=== PATIENT | male | born 1950 | race Caucasian/White ===

== ENCOUNTER 2017-06-03 10:04 | Outpatient (CLI) | payer OTHER, MEDICARE ==
[~2017-06-03] VITALS: Ht 180.3 cm; Wt 106.1 kg
[~2017-06-03 10:04] MED LIST: ASP325T PO; CALC600T PO; DOXY-233 PO; GLUC1TAB29 PO; GLUC500C2 PO; LVT.025T PO; MULT-974 PO; NF-VAL40T PO; NIAC1CAP PO; OMG1KC PO; PRV20T GT; SIRO1TAB PO; TACR1CAP PO; UBID200C17 PO; VIT1TABL57 PO
[2017-06-03 10:11] VITALS: BP 141/81
[2017-06-03 11:04] LABS: BASOPHILS # (AUTO) 0.1 10^3/uL (0.0-0.1); BASOPHILS % (AUTO) 1 % (0-10); EOSINOPHILS # (AUTO) 0.3 10^3/uL (0.0-0.3); EOSINOPHILS % (AUTO) 3 % (0-10); LYMPHOCYTES # (AUTO) 1.8 X 10^3 (1.0-4.0); LYMPHOCYTES % (AUTO) 20 % (12-44); MEAN CORPUSCULAR HEMOGLOBIN 28 PG (25-34); MEAN CORPUSCULAR HGB CONC 33 G/DL (32-36); MEAN CORPUSCULAR VOLUME 85 FL (80-99); MEAN PLATELET VOLUME 10.4 FL (7.4-10.4); MONOCYTES # (AUTO) 1.2 X 10^3 (0.0-1.0); MONOCYTES % (AUTO) 13 % (0-12); NEUTROPHILS # (AUTO) 5.7 X 10^3 (1.8-7.8); NEUTROPHILS % (AUTO) 64 % (42-75); PLATELET COUNT 233 10^3/uL (130-400); RED BLOOD COUNT 5.61 10^6/uL (4.35-5.85); RED CELL DISTRIBUTION WIDTH 14.5 % (10.0-14.5)
[2017-06-03 11:12] LABS: CALCIUM 9.4 MG/DL (8.5-10.1); CREATININE SERUM 1.22 MG/DL (0.60-1.30); POTASSIUM 4.3 MMOL/L (3.6-5.0)
[2017-06-03] MEDS ORDERED: OMG1KC PO (14:07)
[2017-06-03] MEDS ORDERED: ASPI-983 PO (14:07)
[2017-06-03] MEDS ORDERED: UBID200C16 PO (14:07)
[2017-06-03] MEDS ORDERED: CALC600T80 PO (14:07)
[2017-06-03] MEDS ORDERED: CHERRY EXTRACT PO (14:07)
[2017-06-03] MEDS ORDERED: ASCO10006 PO (14:07)
[2017-06-03] MEDS ORDERED: GLUC1500 PO (14:07)
[2017-06-03] MEDS ORDERED: MULT-35 PO (14:07)
[2017-06-03] MEDS ORDERED: VALS40TA8 PO (14:28)
[2017-06-03] MEDS ORDERED: LEVO25TA5 PO (14:28)
[2017-06-03] MEDS ORDERED: SIRO0.5T PO (14:28)
[2017-06-03] MEDS ORDERED: FENO54TA PO (14:28)
[2017-06-03] MEDS ORDERED: TACR0.5C PO ×2 (14:28)
[2017-06-03] MEDS ORDERED: PRAV20TA3 PO (14:28)
[2017-06-03] MEDS ORDERED: CHOL20003 PO (15:12)
[2017-06-03] MEDS ORDERED: ASCO-262 PO (15:17)
== END 2017-06-03 10:45 | disposition home or self-care (01) ==
LOC: PREOP 10:04
PROVIDERS: ATTEND Surgery
DX: K40.90 Unilateral inguinal hernia, without obstruction or gangrene, not specified as recurrent; Z01.812 Encounter for preprocedural laboratory examination
CPT/HCPCS: 36415; 80048; 85025; 87081

== ENCOUNTER → 2017-12-03 | Outpatient (CLI) | payer OTHER, MEDICARE ==
[~2017-12-03] MED LIST changes: +ASCO-262 PO; +ASCO10006 PO; +ASPI-983 PO; +CALC600T80 PO; +CHERRY EXTRACT PO; +CHOL20003 PO; +FENO54TA PO; +GLUC15006 PO; +LEVO25TA5 PO; +MULT-35 PO; +PRAV20TA3 PO; +SIRO0.5T PO; +TACR0.5C PO; +UBID200C16 PO; +VALS40TA8 PO
--- NOTE | 2017-12-03 12:15 | Diagnostic Imaging Report ---
INDICATION: Pneumonia. TIME OF EXAM: 12:09 PM No prior studies are available for comparison. FINDINGS: The heart size is normal. There are changes of median sternotomy. The lungs are clear. No infiltrate, effusion or pneumothorax is detected. IMPRESSION: No acute cardiopulmonary process is detected. Dictated by: Dictated on workstation # [id number]
== END ==
LOC: RAD 11:32
PROVIDERS: ATTEND Internal Medicine
DX: J18.9 Pneumonia, unspecified organism (principal)
CPT/HCPCS: 71046

== ENCOUNTER → 2018-11-30 | Outpatient (CLI) | payer OTHER, MEDICARE ==
[~2018-11-30] MED LIST changes: -VALS40TA8 PO; +VALS40TA9 PO
--- NOTE | 2018-11-30 15:42 | Diagnostic Imaging Report ---
PROCEDURE: CT sinuses without contrast TECHNIQUE: Multiple contiguous axial images were obtained through the sinuses without the use of intravenous contrast. Coronal and sagittal reformations were then performed. Auto Exposure Controls were utilized during the CT exam to meet ALARA standards for radiation dose reduction. INDICATION: Sinusitis and right-sided facial pain. FINDINGS: Frontal sinuses are clear. There is minimal mucosal thickening of the ethmoid air cells. Sphenoid sinus is unremarkable. Bilateral maxillary sinuses are clear. No mucosal thickening or air-fluid levels are seen. Ostiomeatal units are patent. Mastoids are well aerated. IMPRESSION: No evidence of sinusitis. Dictated by: Dictated on workstation # [id number]
== END ==
LOC: RAD 15:09
PROVIDERS: ATTEND Internal Medicine
DX: J01.01 Acute recurrent maxillary sinusitis (principal)
CPT/HCPCS: 70486

== ENCOUNTER → 2019-11-27 | Outpatient (CLI) | payer OTHER, MEDICARE ==
--- NOTE | 2019-11-27 16:49 | Diagnostic Imaging Report ---
EXAMINATION: CHEST (PA AND LATERAL) CLINICAL INDICATION: 69-year-old male, cough and shortness of breath. COMPARISON: December 03, 2017. FINDINGS: There are median sternotomy wires. Stable overall appearance of the cardiomediastinal silhouette. There is no identified pneumothorax. There is no pleural effusion. There is no identified focal airspace consolidation. There are degenerative changes of the spine. There are right acromioclavicular degenerative changes. IMPRESSION: 1. No identified acute cardiopulmonary abnormality. Dictated by: Dictated on workstation # [id number]
== END ==
LOC: RAD 16:33
PROVIDERS: ATTEND Internal Medicine
DX: J18.1 Lobar pneumonia, unspecified organism (principal)
CPT/HCPCS: 71046

== ENCOUNTER → 2020-01-16 | Outpatient (CLI) | payer OTHER, MEDICARE ==
--- NOTE | 2020-01-16 10:20 | Diagnostic Imaging Report ---
INDICATION: Cough. Abnormal breath sounds. Comparison with 11/27/2019. FINDINGS: PA and lateral chest. The lungs are well-aerated. No infiltrates are present. There is mild cardiomegaly. Median sternotomy changes are present. There is implanted monitor overlying the sternum. No evidence of pulmonary edema. No pneumothorax or pleural effusion. IMPRESSION: Postoperative residue. No acute changes have occurred when compared with previous examination. Dictated by: Dictated on workstation # [id number]
== END ==
LOC: RAD 09:36
PROVIDERS: ATTEND Internal Medicine
DX: R05 Cough (principal); R06.89 Other abnormalities of breathing; Z98.890 Other specified postprocedural states
CPT/HCPCS: 71046

== ENCOUNTER 2020-05-09 21:42 | Emergency (ER) | payer OTHER, MEDICARE ==
[~2020-05-09] VITALS: Ht 180 cm; Wt 105.3 kg
--- NOTE | 2020-05-09 22:08 | ED General ---
General Stated Complaint: SWOLEN HANDS Source of Information: Patient (LIMITED HISTORIAN) History of Present Illness Date Seen by Provider: May 09, 2020 Time Seen by Provider: 21:54 Initial Comments PT ARRIVES VIA POV FROM HOME C/O REDNESS AND SWELLING TO LEFT > RIGHT HAND SINCE YESTERDAY C/O FEVER UP TO 99 TOOK 1 GRAM OF TYLENOL AT 1930 TONIGHT HAS HAD GENERALIZED ITCHY RASH FOR THE LAST "2-3 WEEKS", AND HANDS HAVE BEEN DRY AND CRACKED FOR THE LAST 2-3 WEEKS--HAS NOT SOUGHT CARE AT ANY TIME FOR THAT PROBLEM AND HAS NOT TAKEN ANYTHING FOR IT OR USED ANY CREAMS, ETC ON IT NO NEW PRODUCTS., MEDICATIONS OR EXPOSURES MUCH LATER, PT REPORTS THAT "2-3 WEEKS AGO"---AT THE SAME TIME THAT HE BEGAN HAVING THIS GENERALIZED ITCHY RASH, THAT HE HAD HIS 2 ANTI-REJECTION MEDICATION DOSES CHANGED. HE STATES HE WAS TAKING RAPAMUME 1 TABLET ALTERNATING WITH 0.5 TABLET EVERY OTHER DAY--THIS WAS INCREASED TO 1 FULL PILL DAILY. HE WAS TAKING PROGRAF 1 TABLET IN AM, 0.5 TABLET IN PM--THIS WAS DECREASED TO 0.5 TABLET TWICE A DAY NO HISTORY OF SIMILAR OR ANY SKIN PROBLEMS IN THE PAST NO DIFFICULTY BREATHING OR SWALLOWING. PT HAS HAD HEART TRANSPLANT IN [address] HI'S OFFICE LATE THIS AFTERNOON AND HAS AN APPOINTMENT IN THE MORNING FOR THIS PROBLEM PCP: DR. HI CARDIOLOGY: [facility] Allergies and Home Medications Allergies Coded Allergies: Penicillins (Unverified Allergy, Mild, 01/09/10) Home Medications Ascorbate Calcium 500 Mg Tablet, 500 MG PO HS, (Reported) Ascorbic Acid 1,000 Mg Tablet, 1,000 MG PO DAILY, (Reported) Aspirin 81 Mg Tablet.dr, 81 MG PO HS, (Reported) Calcium Carbonate 600 Mg Tablet, 600 MG PO BID, (Reported) Cholecalciferol (Vitamin D3) 2,000 Unit Capsule, 2,000 UNIT PO DAILY, (Reported) Clindamycin HCl 300 Mg Capsule, 300 MG PO QID Prescribed by: DHEERAJ ALMANZAR on 05/09/20 1295 Fenofibrate 54 Mg Tablet, 54 MG PO DAILY, (Reported) Glucosamine HCl 1,500 Mg Tablet, 1,500 MG PO BID, (Reported) L. Acidophilus/Pectin, [place] 1 Each Capsule, 2 EACH PO QID Prescribed by: DHEERAJ ALMANZAR on 05/09/20 7645 Levothyroxine Sodium 25 Mcg Tablet, 25 MCG PO DAILY, (Reported) Multivitamin 1 Each Tablet, 1 TAB PO DAILY, (Reported) [place] 3 Polyunsat Fatty Acids 1,000 Mg Cap, 2,000 MG PO BID, (Reported) Pravastatin Sodium 20 Mg Tablet, 20 MG PO HS, (Reported) Sirolimus 0.5 Mg Tablet, 0.5 MG PO Q48H, (Reported) ALTERNATES EVERY OTHER DAY WITH 1MG Sirolimus 0.5 Mg Tablet, 1 MG PO Q48H, (Reported) TAKES 2 (0.5MG) TABLETS ALTERNATES EVERY OTHER DAY WITH 0.5MG Tacrolimus 0.5 Mg Capsule, 1 MG PO DAILY, (Reported) TAKES 2 (0.5MG) CAPSULES EVERY MORNING AND 1 (0.5MG) CAPSULE EVERY EVENING Tacrolimus 0.5 Mg Capsule, 0.5 MG PO HS, (Reported) TAKES 2 (0.5MG) CAPSULES EVERY MORNING AND 1 (0.5MG) CAPSULE EVERY EVENING Ubidecarenone 200 Mg Capsule, 200 MG PO DAILY, (Reported) Valsartan 40 Mg Tablet, 40 MG PO HS, (Reported) [Wren Extract] , 1,200 MG PO HS, (Reported) Patient Home Medication List Home Medication List Reviewed: Yes Review of Systems Review of Systems Constitutional: see HPI, fever EENTM: no symptoms reported, other (NO SWELLING TO LIPS OR TONGUE OR THROAT) Respiratory: no symptoms reported; No cough, No short of breath, No wheezing Cardiovascular: no symptoms reported; No chest pain Gastrointestinal: no symptoms reported Musculoskeletal: see HPI Skin: see HPI Psychiatric/Neurological: No Symptoms Reported Hematologic/Lymphatic: No Symptoms Reported Immunological/Allergic: see HPI, transplant Past Hhptxfx-Caftau-Guvzvi Hx Past Med/Social Hx: Reviewed and Corrections made Patient Social History Recent Hopitalizations: No Immunizations Up To Date Date of Influenza Vaccine: Jul 18, 2013 Seasonal Allergies Seasonal Allergies: Yes Past Medical History Surgeries: Yes (HEART TRANSPLANT 07/2005; COLONOSCOPY 2012) Cardiac Respiratory: Yes Sleep Apnea Currently Using CPAP: Yes Cardiac: Yes (HEART TRANSPLANT 07/2005 FOR IHSS) Hypertension Neurological: Yes Vertigo Genitourinary: No Gastrointestinal: Yes (DIVERTICULAR DISEASE NOTED ON COLONOSCOPY) Diverticulosis Musculoskeletal: Yes Gout Endocrine: No HEENT: No Cancer: Yes Skin Psychosocial: No Integumentary: No Blood Disorders: No Physical Exam Vital Signs Vital Signs - First Documented 05/09/20 21:55 Temp 37.3 Pulse 79 Resp 19 B/P (MAP) 142/73 (96) Pulse Ox 96 O2 Delivery Room Air Capillary Refill : Height, Weight, BMI Height: 5'11.00" Weight: 234lbs. 0.0oz. 106.665708ub; 32.6 BMI Method: General Appearance: No Apparent Distress, WD/WN HEENT: PERRL/EOMI, Other (NO SWELLING TO LIPS OR TONGUE OR POSTERIOR PHARYNX. 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 WRISTS HAVE AREAS WHERE SKIN HAS CRACKED IN SKIN FOLDS, AND HAS SCABBED OVER. NO DRAINAGE FROM THESE AREAS. NO AREAS OF FLUCTUANCE. NO STREAKS. .) Progress/Results/Core Measures Suspected Sepsis SIRS Temperature: Pulse: Respiratory Rate: Laboratory Tests 05/09/20 22:00: White Blood Count 10.3 Blood Pressure / Mean: Laboratory Tests 05/09/20 22:00: Creatinine 1.60H, INR Comment 1.1, Platelet Count 255, Total Bilirubin 0.5 Results/Orders Lab Results Laboratory Tests Test 05/09/20 22:00 Range/Units White Blood Count 10.3 4.3-11.0 10^3/uL Red Blood Count 4.88 4.35-5.85 10^6/uL Hemoglobin 13.8 13.3-17.7 G/DL Hematocrit 42 40-54 % Mean Corpuscular Volume 86 80-99 FL Mean Corpuscular Hemoglobin 28 25-34 PG Mean Corpuscular Hemoglobin Concent 33 32-36 G/DL Red Cell Distribution Width 13.8 10.0-14.5 % Platelet Count 255 130-400 10^3/uL Mean Platelet Volume 9.9 7.4-10.4 FL Neutrophils (%) (Auto) 67 42-75 % Lymphocytes (%) (Auto) 17 12-44 % Monocytes (%) (Auto) 12 0-12 % Eosinophils (%) (Auto) 4 0-10 % Basophils (%) (Auto) 0 0-10 % Neutrophils # (Auto) 6.9 1.8-7.8 X 10^3 Lymphocytes # (Auto) 1.8 1.0-4.0 X 10^3 Monocytes # (Auto) 1.2 H 0.0-1.0 X 10^3 Eosinophils # (Auto) 0.4 H 0.0-0.3 10^3/uL Basophils # (Auto) 0.0 0.0-0.1 10^3/uL Erythrocyte Sedimentation Rate 18 0-30 MM/HR Prothrombin Time 15.0 H 12.2-14.7 SEC INR Comment 1.1 0.8-1.4 Activated Partial Thromboplast Time 33 24-35 SEC Sodium Level 138 135-145 MMOL/L Potassium Level 4.5 3.6-5.0 MMOL/L Chloride Level 109 H 98-107 MMOL/L Carbon Dioxide Level 18 L 21-32 MMOL/L Anion Gap 11 5-14 MMOL/L Blood Urea Nitrogen 27 H 7-18 MG/DL Creatinine 1.60 H 0.60-1.30 MG/DL Estimat Glomerular Filtration Rate 43 BUN/Creatinine Ratio 17 Glucose Level 168 H 70-105 MG/DL Calcium Level 8.6 8.5-10.1 MG/DL Corrected Calcium 8.8 8.5-10.1 MG/DL Total Bilirubin 0.5 0.1-1.0 MG/DL Aspartate Amino Transf (AST/SGOT) 27 5-34 U/L Alanine Aminotransferase (ALT/SGPT) 22 0-55 U/L Alkaline Phosphatase 120 40-136 U/L C-Reactive Protein High Sensitivity 3.41 H 0.00-0.50 MG/DL Total Protein 7.4 6.4-8.2 GM/DL Albumin 3.7 3.2-4.5 GM/DL Procalcitonin 0.08 <0.10 NG/ML My Orders Orders - DHEERAJ ALMANZAR DO Ed Iv/Invasive Line Start (05/09/20 21:59) Monitor-Rhythm Ecg Trace Only (05/09/20 21:59) Cbc With Automated Diff (05/09/20 21:59) Comprehensive Metabolic Panel (05/09/20 21:59) Hs C Reactive Protein (05/09/20 21:59) Erythrocyte Sedimentation Rate (05/09/20 21:59) Procalcitonin (Pct) (05/09/20 21:59) Protime With Inr (05/09/20 21:59) Partial Thromboplastin Time (05/09/20 21:59) Blood Culture (05/09/20 21:59) Clindamycin 900 Mg/50 Ml Ivpb (Cleocin P (05/09/20 23:00) Rx-Clindamycin Capsule (Rx-Cleocin Capsu (05/09/20 23:35) Rx-Clindamycin Capsule (Rx-Cleocin Capsu (05/09/20 23:44) Medications Given in ED Current Medications Medications Dose Ordered Sig/Diana Route Start Time Stop Time Status Last Admin Dose Admin Clindamycin Phosphate/Dextrose 50 ml @ 100 mls/hr ONCE ONCE IV 05/09/20 23:00 05/09/20 23:29 DC 05/09/20 23:14 100 MLS/HR Vital Signs/I&O 05/09/20 21:55 Temp 37.3 Pulse 79 Resp 19 B/P (MAP) 142/73 (96) Pulse Ox 96 O2 Delivery Room Air Capillary Refill : Progress Note : Progress Note PT DECLINES ADMIT AT THIS TIME. PT HAS AN APPOINTMENT WITH DR. HI IN THE MORNING FOR THIS PROBLEM. ADVISED PT THAT HE MAY NEED TO BE ADMITTED IF NOT IMPROVED IN 1-2 DAYS OR IF WORSE ADVISED PT THAT THE RASH THAT HE HAS HAD FOR THE LAST 2-3 WEEKS IS LIKELY RELATED TO HIS RECENT MEDICATION CHANGES AND ADVISED HIM TO FOLLOW UP WITH HIS TRANSPLANT DRKael NEXT WEEK FOR THAT PROBLEM. WILL HOLD STEROIDS FOR NOW. Departure Impression Primary Impression: BILATERAL HAND AND FOREARM CELLULITIS Additional Impressions: RASH--POSSIBLY DUE TO RECENT MEDICATION CHANGES IMMUNOSUPPRESSIVE MEDICATIONS Disposition: 01 HOME, SELF-CARE Condition: Stable Departure-Patient Inst. Referrals: ANDREW HI DO (PCP/Family) Primary Care Physician Patient Instructions: Cellulitis (Skin Infection), Adult (DC), Skin Rash (DC) Add. Discharge Instructions: KEEP YOUR APPOINTMENT IN THE MORNING WITH DR. HI TYLENOL AND MOTRIN NEEDED FOR PAIN OR FEVER BENADRYL 50 MG AT NIGHT, CLARITIN 10 MG IN THE MORNING NEEDED FOR RASH AND ITCHING FOLLOW UP WITH YOUR TRANSPLANT DR NEXT WEEK REGARDING YOUR RASH Scripts L. Acidophilus/Pectin, [place] (Acidophilus Capsule) 1 Each Capsule 2 EACH PO QID, #40 CAP Prov: DHEERAJ ALMANZAR DO 05/09/20 Clindamycin HCl (Clindamycin HCl) 300 Mg Capsule 300 MG PO QID for 10 Days, #40 CAP Prov: DHEERAJ ALMANZAR DO 05/09/20 DHEERAJ ALMANZAR DO May 09, 2020 22:08
[2020-05-09 22:16] LABS: BASOPHILS % (AUTO) 0 % (0-10); EOSINOPHILS # (AUTO) 0.4 10^3/uL (0.0-0.3); EOSINOPHILS % (AUTO) 4 % (0-10); HEMATOCRIT 42 % (40-54); HEMOGLOBIN 13.8 G/DL (13.3-17.7); LYMPHOCYTES # (AUTO) 1.8 X 10^3 (1.0-4.0); LYMPHOCYTES % (AUTO) 17 % (12-44); MEAN CORPUSCULAR HEMOGLOBIN 28 PG (25-34); MEAN CORPUSCULAR HGB CONC 33 G/DL (32-36); MEAN CORPUSCULAR VOLUME 86 FL (80-99); MEAN PLATELET VOLUME 9.9 FL (7.4-10.4); MONOCYTES # (AUTO) 1.2 X 10^3 (0.0-1.0); MONOCYTES % (AUTO) 12 % (0-12); NEUTROPHILS # (AUTO) 6.9 X 10^3 (1.8-7.8); NEUTROPHILS % (AUTO) 67 % (42-75); PLATELET COUNT 255 10^3/uL (130-400); RED CELL DISTRIBUTION WIDTH 13.8 % (10.0-14.5); WHITE BLOOD COUNT 10.3 10^3/uL (4.3-11.0)
[2020-05-09 22:35] LABS: ALBUMIN 3.7 GM/DL (3.2-4.5); POTASSIUM 4.5 MMOL/L (3.6-5.0)
[2020-05-09 22:36] LABS: CALCIUM 8.6 MG/DL (8.5-10.1)
[2020-05-09 22:38] LABS: INR 1.1 (0.8-1.4); TOTAL PROTEIN 7.4 GM/DL (6.4-8.2)
[2020-05-09 22:39] LABS: BILIRUBIN,TOTAL 0.5 MG/DL (0.1-1.0)
[2020-05-09 22:41] LABS: CREATININE SERUM 1.6 MG/DL (0.60-1.30)
[2020-05-09] MEDS ORDERED: CLINDAMYCIN 900 MG/50 ML IVPB 50 ML IV ONE (23:00)
[2020-05-09 23:09] LABS: ERYTHROCYTE SEDIMENTATION RATE 18 MM/HR (0-30)
--- NOTE | 2020-05-09 23:20 | NUR ---
Per pt request, this RN contacted , Mercedes, regarding pt findings, DX, TX, et care recieved while in this ED. Discharge instructions also reviewed with at this time. Mercedes voices no further questions or concerns. ([phone])
[2020-05-09] MEDS ORDERED: L. A1CAP11 PO (23:27)
[2020-05-09] MEDS ORDERED: CLIN300C11 PO (23:27)
[2020-05-09] MEDS ORDERED: RX-CLINDAMYCIN 150 MG (CLEOCIN) CAP PPK#4 PO STA ×2 (23:35→23:44)
[2020-05-09 23:54] VITALS: BP 140/73
== END 2020-05-10 00:10 | disposition home or self-care (01) ==
LOC: EDUNIT# 21:42 → ER 21:44
DX: L03.114 Cellulitis of left upper limb (principal); L03.113 Cellulitis of right upper limb; I10 Essential (primary) hypertension; Z92.25 Personal history of immunosuppression therapy; Z94.1 Heart transplant status; Z88.0 Allergy status to penicillin; Z79.82 Long term (current) use of aspirin; Z85.828 Personal history of other malignant neoplasm of skin
CPT/HCPCS: 36415; 80053; 84145; 85025; 85610; 85652; 85730; 86141; 87040; 93041

== ENCOUNTER 2022-07-08 05:52 | Outpatient (CLI) | payer OTHER, MEDICARE ==
[~2022-07-08] VITALS: Ht 177.8 cm; Wt 105.5 kg
[~2022-07-08 05:52] MED LIST changes: +ASCO100024 PO; -ASCO10006 PO; +ASPI-1238 PO; -ASPI-983 PO; +CLIN-144 PO; +L. A1CAP11 PO
[2022-07-08] MEDS ORDERED: ATOR20TA66 PO (13:12)
[2022-07-08] MEDS ORDERED: CAND16TA29 PO (13:12)
[2022-07-08] MEDS ORDERED: MULT-1136 PO (13:16)
[2022-07-08] MEDS ORDERED: CHOL200059 PO (13:16)
[2022-07-08] MEDS ORDERED: VITA1TAB17 PO (13:16)
[2022-07-08] MEDS ORDERED: OMEG1CAP58 PO (13:16)
[2022-07-08] MEDS ORDERED: ZINC50TA11 PO (13:16)
== END 2022-07-08 13:20 | disposition home or self-care (01) ==
LOC: PREOP 05:52
PROVIDERS: ATTEND Internal Medicine
DX: Z01.818 Encounter for other preprocedural examination (principal)

== ENCOUNTER 2022-07-17 09:12 | Day surgery (SDC) | payer OTHER, MEDICARE ==
--- NOTE | 2022-07-09 06:36 | HISTORY AND PHYSICAL ---
DATE OF SERVICE: COLONOSCOPY HISTORY AND PHYSICAL DATE OF ADMISSION: ____. REFERRING PHYSICIAN: Dr. Ronnie Mercado from [facility]. INDICATION FOR THE PROCEDURE: Screening colonoscopy. I performed his last colonoscopy 10 years ago, at which time, he had mild diverticular disease without any evidence for neoplasia. He did have 1 x 2 cm lesion in the cecum compatible with angiodysplasia. He denies any issues with anemia, melena or bright red blood per rectum. Denies bowel habit change. 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. He has a history of hypothyroidism, on replacement and hyperlipidemia for which he takes fenofibrate. He has no known history of coronary artery disease. PAST SURGICAL HISTORY: Other than cardiac transplant is significant for right inguinal hernia repair at the age of 22. He had myomectomy in 1978. SOCIAL HISTORY: He has a 70-rxoj-hgnc smoking history, quit over 30 years ago with a past history of smokeless tobacco, but quit in 1992. 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 FAMILY HISTORY: He is not aware of any family history for colon cancer or colon polyps. REVIEW OF SYSTEMS: CONSTITUTIONAL: Denies night sweats, chills, fever or change in weights. PULMONARY: Denies cough, wheezing or shortness of breath. CARDIOVASCULAR: Denies chest pain, orthopnea, PND, pedal edema, syncope or palpitation. He has had no issues with rejection in regard to his cardiac transplant. Reported systolic function has been normal. GASTROINTESTINAL: As noted in the HPI. PHYSICAL EXAMINATION: GENERAL: Reveals a white male, appears to be in no acute distress. VITAL SIGNS: Weight 232 pounds, actually down 3 pounds from 10 years ago. Blood pressure 130/72. HEENT: Unremarkable. NECK: Revealed no JVD, adenopathy or bruits. CHEST: Clear to auscultation. CARDIOVASCULAR: Reveals a regular rate and rhythm. Soft 1 to 2/6 systolic ejection murmur heard best at the second intercostal space without evidence for possible pulses, parvus or tardus. No diastolic murmurs noted. A midline well-healed chest wall incision noted. ABDOMEN: Soft, supple without mass, organomegaly or tenderness. EXTREMITIES: Reveal no cyanosis, clubbing or edema. ASSESSMENT AND PLAN: The patient is being set up for a second screening colonoscopy. Prep instructions with split dose Colyte were given. Electronic medical record reviewed as well as previous colonoscopy. Prep instructions were given and questions were answered. I thank you for the referral of this pleasant gentleman. Job ID: [id number] DocumentID: [id number] Dictated Date: 07/06/2022 17:29:58 Heel Painter Date: 07/06/2022 17:52:51 Dictated By: FRANCISCO GUTIERREZ MD
[~2022-07-17] VITALS: Ht 178 cm; Wt 105.5 kg
--- NOTE | 2022-07-17 09:09 | Pre-Op Note & Conscious Sedat ---
Pre-Operative Progress Note Date H&P Reviewed: Jul 17, 2022 Time H&P Reviewed: 09:09 History & Physical: H&P Reviewed, Patient Examed, No changes noted Pre-Op Diagnosis: screening Conscious Sedation Pre-Proced ASA Score 2 For ASA 3 and 4: Consider anesthesia and medical clearance. Also, for patients with a history of failed moderate sedation consider anesthesia. Airway Lungs Heart ASA score ASA 1: a normal healthy patient ASA 2: a patient with a mild systemic disease (mid diabetes, controlled hypertension, obesity ASA 3: a patient with a severe systemic disease that limits activity (angina, COPD, prior Myocardial infarction) ASA 4: a patient with an incapacitating disease that is a constant threat to life (CHF, renal failure) ASA 5: a moribund patient not expected to survive 24 hrs. (ruptured aneurysm) ASA 6: a declared brain- patient whose organs are being harvested. For emergent operations, add the letter E after the classification Mallampati Classification Grade 2 Sedation Plan Analgesia, Amnesia, Plan communicated to team members, Discussed options with patient/fam, Discussed risks with patient/fam The patient is an appropriate candidate to undergo the planned procedure, sedation, and anesthesia. The patient immediately re-assessed prior to indication. FRANCISCO GUTIERREZ MD Jul 17, 2022 09:09
[~2022-07-17 09:12] MED LIST changes: +ATOR20TA66 PO; +CAND16TA29 PO; +CHOL200059 PO; +MULT-1136 PO; +OMEG1CAP58 PO; +VITA1TAB17 PO; +ZINC50TA11 PO
[2022-07-17] MEDS ORDERED: LACTATED RINGERS 1,000 ML IV STA (09:20)
[2022-07-17] MEDS ORDERED: LACTATED RINGERS 1,000 ML IV ONE (09:26)
[2022-07-17 09:30] VITALS: BP 151/83
[2022-07-17] MEDS ORDERED: PROPOFOL INJECTION 50 ML IV ONE (09:44)
[2022-07-17 10:16] VITALS: BP 110/65
[2022-07-17 10:20] VITALS: BP 110/65
--- NOTE | 2022-07-17 10:21 | Progress Note-Post Operative ---
Post-Procedure Note Physician (s)/Gut Carrier (s) Physician FRANCISCO GUTIERREZ MD Pre-Procedure Diagnosis Pre-Procedure Diagnosis: screening Post-Procedure Diagnosis Post-operative diagnosis: Screening colonoscopy Prior to undergoing colonoscopy digital rectal evaluation was performed. Anal sphincter tone was normal and the perianal reflexes intact. The prostate was unremarkable with digital inspection as was the anal canal and distal rectal vault. The colonoscope was then inserted into the rectum and under direct visualization advanced to the cecum. The cecum was identified by identification of the ileocecal valve and the cecal strap. A careful inspection was made as the colonoscope was withdrawn. Quality of the prep was good. Findings: The rectum sigmoid colon descending colon transverse colon hepatic flexure ascending colon and cecum were unremarkable with no evidence for neoplasia or diverticular disease. A/P 1. Normal colonoscopy to the cecum under good prep conditions. Considering age and medical comorbidity would not advise future screening colonoscopy. Sincerely, Francisco Gutierrez MD. CC: FRANCISCO Alberto MD Jul 17, 2022 10:21
[2022-07-17 10:30] VITALS: BP 125/77
[2022-07-17 10:35] VITALS: BP 125/77
--- NOTE | 2022-07-17 11:29 | Anesthesia-General Post-Op ---
MAC Patient Condition Mental Status/LOC: Same as Preop Cardiovascular: Satisfactory Nausea/Vomiting: Absent Respiratory: Satisfactory Pain: Controlled Complications: Absent Post Op Complications Complications None Follow Up Care/Instructions Patient Instructions None needed. Anesthesiology Discharge Order Discharge Order Patient was doing well after the procedure with no complaints, stable vital signs, no apparent adverse anesthesia problems. No complications reported per nursing. PETAR WONG DO Jul 17, 2022 11:29
== END 2022-07-17 11:25 | disposition home or self-care (01) ==
LOC: ENDO 09:12
PROVIDERS: ATTEND Internal Medicine
DX: Z12.11 Encounter for screening for malignant neoplasm of colon (principal); E03.9 Hypothyroidism, unspecified; E78.5 Hyperlipidemia, unspecified; Z87.891 Personal history of nicotine dependence; Z94.1 Heart transplant status; Z79.899 Other long term (current) drug therapy; Z79.890 Hormone replacement therapy